=== PATIENT | male | born 1975 | race Hispanic/Latino ===

== ENCOUNTER 2018-07-14 13:46 | Emergency (ER) | payer SELFPAY ==
[~2018-07-14] VITALS: Ht 165.1 cm; Wt 77.1 kg
== END 2018-07-14 17:48 | disposition short-term general hospital (02) ==
LOC: ER 13:46
DX: K64.9 Unspecified hemorrhoids (principal); Z53.21 Procedure and treatment not carried out due to patient leaving prior to being seen by health care provider